=== PATIENT | male | born 1980 | race Caucasian/White ===

== ENCOUNTER → 2020-06-24 | Outpatient (CLI) | payer OTHER ==
[~2020-06-24] MED LIST: FISH OIL 1,0001 EAC2 PO; HYDROCHLOROTH12.5 MG; LISINOPRIL10 MG PO; MULTI-VITAMIN1 EACH PO; PAROXETINE HCL20 MG PO; XANAX0.5 MG
== END ==
LOC: DX 16:08 → EDSTATUS 06-28 10:30
PROVIDERS: ATTEND Internal Medicine Gastroenterology
DX: Z01.812 Encounter for preprocedural laboratory examination (principal); Z20.822 Contact with and (suspected) exposure to COVID-19; Z01.818 Encounter for other preprocedural examination; K62.5 Hemorrhage of anus and rectum; K64.9 Unspecified hemorrhoids
CPT/HCPCS: 93005; U0002